=== PATIENT | male | born 1995 | race Hispanic/Latino ===

== ENCOUNTER 2023-12-03 19:55 | Emergency (ER) | payer BC ==
[~2023-12-03] VITALS: Ht 170.2 cm; Wt 90.7 kg
[2023-12-03] MEDS: KETOROLAC 30MG VIAL (30MG/ML) IVP ONE (20:28)
[2023-12-03] MEDS: ONDANSETRON 4MG INJ IVP ONE (20:34)
[2023-12-03] MEDS: 0.9%NACL 1000ML 1,000 ML IV ONE (20:35)
[2023-12-03 20:41] LABS: BASOPHILS # (AUTO) 0.06 K/uL (0.00-0.20); BASOPHILS % (AUTO) 0.5 % (0.0-5.0); EOSINOPHILS # (AUTO) 0.05 K/uL (0.00-0.70); EOSINOPHILS % (AUTO) 0.4 % (0.0-8.0); HEMATOCRIT 40.2 % (42-54); IMMATURE GRANULOCYTE ABSOLUTE 0.04 K/uL (0-1); LYMPHOCYTES # (AUTO) 1.8 K/uL (1.0-4.8); LYMPHOCYTES % (AUTO) 13.8 % (21.0-51.0); MEAN CORPUSCULAR HEMOGLOBIN 30.4 pg (27.0-33.0); MEAN CORPUSCULAR HGB CONC 35.8 g/dL (32.0-36.0); MONOCYTES # (AUTO) 0.8 K/uL (0.1-1.0); MONOCYTES % (AUTO) 6.1 % (3.0-13.0); NEUTROPHILS # (AUTO) 10.2 K/uL (1.8-7.7); NEUTROPHILS % (AUTO) 78.9 % (40.0-77.0); PLATELET COUNT (AUTO) 297 K/uL (130-400); RED BLOOD CELL COUNT(AUTO) 4.73 MIL/uL (4.50-6.20); WHITE BLOOD COUNT (AUTO) 12.9 K/uL (4.8-10.8)
[2023-12-03 20:53] LABS: ALBUMIN 3.8 g/dL (3.5-5.0); BILIRUBIN,TOTAL 1.3 mg/dL (0.2-1.0); CREATININE 1.3 mg/dL (0.5-1.3); TOTAL PROTEIN, SERUM 6.7 g/dL (6.0-8.3)
[2023-12-03 20:56] LABS: POTASSIUM 2.9 mmol/L (3.5-5.1)
[2023-12-03] MEDS: AMOX/CLAV 875/125MG TAB PO ONE (21:07)
[2023-12-03] MEDS: POTASSIUM BICARB/CIT AC 25 MEQ TABLET.EFF PO ONE (21:07)
[2023-12-03] MEDS: TAMSULOSIN HCL 0.4 MG CAP.ER.24H PO ONE (21:07)
[2023-12-03 21:46] VITALS: BP 134/76; PULSE 77; RESP 18
[2023-12-03] MEDS ORDERED: IBUP-2077 PO (21:51)
[2023-12-03] MEDS ORDERED: TAMS-1 PO (21:51)
[2023-12-03 21:58] LABS: BILIRUBIN,URINE NEGATIVE (NEGATIVE); COLOR,URINE YELLOW (YELLOW); GLUCOSE, URINE (UA) NEGATIVE (NEGATIVE); KETONES,URINE NEGATIVE (NEGATIVE); LEUKOCYTE ESTERASE ,URINE NEGATIVE Leu/uL (NEGATIVE); NITRATE,URINE NEGATIVE (NEGATIVE); OCCULT BLOOD,URINE MODERATE (NEGATIVE); PH,URINE 8.5 (5.0-8.0); PROTEIN,URINE NEGATIVE (NEGATIVE); UROBILINOGEN,URINE 0.2 mg/dL (0.2-1.0)
[2023-12-03 22:00] LABS: ADD UA MICROSCOPIC YES; APPEARANCE,URINE SLIGHTLY CLOUDY (CLEAR)
[2023-12-03 22:07] LABS: RBC,URINE 51-100 /HPF (0-1)
[2023-12-03 22:08] LABS: BACTERIA,URINE None Seen /HPF (None Seen); MUCUS,URINE Rare LPF (None Seen); SQUAMOUS EPITHELIAL CELL,UR Rare /HPF (0-2)
== END 2023-12-03 22:29 | disposition home or self-care (01) ==
LOC: EDH 19:55
DX: N13.2 Hydronephrosis with renal and ureteral calculous obstruction (principal); Z79.899 Other long term (current) drug therapy
CPT/HCPCS: 99284; 74176; 96374; 96375; 80053; 83690; 85025; 81001; 36415; J7030; J2405; J1885